=== PATIENT | male | born 1950 | race Caucasian/White ===

== ENCOUNTER 2017-05-29 09:39 | Emergency (ER) | payer MEDICARE, MEDICAID ==
[~2017-05-29] VITALS: Ht 172.7 cm; Wt 83.0 kg
[~2017-05-29 09:39] MED LIST: NKM
[2017-05-29] MEDS ORDERED: NKM (09:48)
[2017-05-29 09:51] VITALS: BP 156/88
[2017-05-29] MEDS ORDERED: Carbamide Peroxide 6.5% Ot Sol 15ML RIGHT EAR STA (09:56)
--- NOTE | 2017-05-29 10:01 | Emergency Room Report ---
History of Present Illness General Chief Complaint: Earache Source: Patient Present Illness HPI Patient presents with right ear pain. This began after he got shower water into his ear. There's been decreased hearing there also. Denies any fevers. Some tenderness when he moves his ear about a. Denies any sore throat. No other somatic complaints. Allergies: Coded Allergies: No Known Allergies (Unverified , 10/22/12) Patient History Limited by: language barrier Past Medical History: see triage record Social History: Denies: smoking, alcohol use, drug use Social History Narrative Reviewed Nursing Documentation: PMH: Agreed, PSxH: Agreed Nursing Documentation-PMH Past Medical History: No History, Except For Hx Hypertension: Yes Review of Systems Constitutional: Denies: fever Eye: Denies: eye pain ENT: Reports: see HPI Respiratory: Denies: shortness of breath Cardiovascular: Denies: chest pain Gastrointestinal: Denies: nausea Skin: Denies: rash Neurological: Denies: headache Physical Exam Vital Signs Date Time Temp Pulse Resp B/P (MAP) Pulse Ox O2 Delivery O2 Flow Rate FiO2 05/29/17 09:43 97.3 71 17 156/88 96 Room Air Sp02 EP Interpretation: reviewed, normal General Appearance: well appearing, no apparent distress Head: normocephalic, atraumatic Eyes: bilateral eye normal inspection, bilateral eye PERRL ENT: hearing grossly normal, normal voice, other - cerumen bilat. Polyp in canal. Erythema of canal. Neck: full range of motion, supple Respiratory: no respiratory distress, speaking full sentences Musculoskeletal: no calf tenderness Neurologic: alert, normal gait, grossly normal Psychiatric: mood/affect normal Skin: no rash Procedures Additional Procedure Procedure Narrative cerumen removal with plastic loop Medical Decision Making Diagnostic Impression: Primary Impression: Cerumen impaction Qualified Codes: H61.21 - Impacted cerumen, right ear Additional Impression: External otitis Qualified Codes: H60.501 - Unspecified acute noninfective otitis externa, right ear ER Course Patient with R ear pain after shower water entered. Cerumen present and polyp. Min canal erythema. Clinical diagnosis of cerumen impaction and possible OE. Needing removal of cerumen. Much removed with loop. Irrigated after Debrox X2. Still with cerumen but states hearing improved. Will rx debrox and cortisporin. Patient improved. Patient stable for outpatient observation and treatment. (Patient left d/c instructions and rx's at registration desk. Attempted to call , number not connected. Sent letter to package pick up instructions and Rxs.) Last Vital Signs Date Time Temp Pulse Resp B/P (MAP) Pulse Ox O2 Delivery O2 Flow Rate FiO2 05/29/17 11:48 97.3 17 156/88 96 Room Air 05/29/17 09:43 71 Status: improved Disposition: HOME, SELF-CARE Condition: Improved Scripts Acetaminophen (Tylenol) 325 Mg Tablet 650 MG ORAL Q6H Y for Prn Pain/Headache/Temp > 101, #20 TAB 0 Refills Prov: Jose Coombs M.D. 05/29/17 Neomycin/Polymyxin B Sulf/Hc* (CORTISPORIN EAR SOLUTION*) 10 Ml Solution 4 DROP RIGHT EAR QID, #10 ML 0 Refills Prov: Jose Coombs M.D. 05/29/17 Carbamide Peroxide (DEBROX) 15 Ml Drops 10 DROP RIGHT EAR TWICE A DAY for 4 Days, ML 0 Refills Prov: Jose Coombs M.D. 05/29/17 Jose Coombs M.D. May 29, 2017 10:01
[2017-05-29] MEDS ORDERED: TYLENOL325 MG ORAL (11:38)
[2017-05-29] MEDS ORDERED: CORTISPORIN EAR10 ML RIGHT EAR (11:38)
[2017-05-29] MEDS ORDERED: DEBROX15 M1 RIGHT EAR (11:38)
[2017-05-29] MEDS ORDERED: IBUPROFEN600 MG ORAL (20:22)
[2017-05-29] MEDS ORDERED: GENTAMICIN SUL3.5 GM OP (20:22)
== END 2017-05-29 11:45 | disposition home or self-care (01) ==
LOC: EMR 10:16 → MERGE 10:16 → EMR 11:45
DX: H61.23 Impacted cerumen, bilateral (principal); H60.91 Unspecified otitis externa, right ear
CPT/HCPCS: 99283

== ENCOUNTER 2017-05-29 19:43 | Emergency (ER) | payer MEDICAID, MEDICARE ==
[~2017-05-29] VITALS: Ht 180.3 cm; Wt 81.6 kg
[~2017-05-29 19:43] MED LIST changes: +CORTISPORIN EAR10 ML RIGHT EAR; +DEBROX15 M1 RIGHT EAR; +TYLENOL325 MG ORAL
[2017-05-29 20:05] VITALS: BP 130/82
[2017-05-29] MEDS ORDERED: Tetracaine 0.5% Opth 4ml Soln RIGHT EYE ONE (20:15)
[2017-05-29] MEDS ORDERED: Fluorescein Strips RIGHT EYE ONE (20:15)
[2017-05-29] MEDS ORDERED: IBUPROFEN600 MG ORAL (20:22)
[2017-05-29] MEDS ORDERED: GENTAMICIN SUL3.5 GM OP (20:22)
--- NOTE | 2017-05-29 21:40 | Emergency Room Report ---
History of Present Illness General Chief Complaint: Eye Problems Source: Patient, Medical Record Present Illness HPI Patient presents with complaints of right eye irritation and pain patient reports that he was here earlier this morning with ear discomfort However now feels discomfort to the eye Denies any obvious foreign body denies any trauma He reports of the pain came on fairly quickly at approximately 5:00 Denies any headache He feels that he is increasingly having tearing from that eye but denies any change in eye sight Allergies: Coded Allergies: No Known Allergies (Unverified , 10/22/12) Patient History Past Medical History: see triage record Past Surgical History: none Pertinent Family History: none Reviewed Nursing Documentation: PMH: Agreed, PSxH: Agreed Nursing Documentation-PMH Hx Hypertension: Yes Review of Systems All Other Systems: negative except mentioned in HPI Physical Exam Vital Signs Date Time Temp Pulse Resp B/P (MAP) Pulse Ox O2 Delivery O2 Flow Rate FiO2 05/29/17 19:57 98.2 32 16 130/82 98 Room Air Sp02 EP Interpretation: reviewed, normal General Appearance: well appearing, no apparent distress Head: normocephalic, atraumatic Eyes: right eye other - Scleral injection, fluorescein stain does not reveal any obvious abrasions or lacerations, no other injury uptake. Pressure of the eye was also normal , bilateral eye PERRL ENT: normal pharynx, no angioedema Neck: supple Musculoskeletal: normal inspection Neurologic: alert, oriented x3, responsive Skin: normal color, no rash Lymphatic: no adenopathy Medical Decision Making Diagnostic Impression: Primary Impression: conjunctivitis ER Course Patient's findings are in line with what appears to be conjunctivitis Consideration for glaucoma, iritis and other emergent pathology is also made Unfortunately we do not have any ophthalmology monorail helperbenefits specialist at this facility Patient has significantly better here at this time, I did discuss possibly sitting transfer to another facility with ophthalmology monorail helper specialty Patient's people however does react appropriately which decreases the likelihood of acute glaucoma However retinal detachment and iritis still considered Patient however also has appropriate vision And otherwise states that he has an velvet steamer that he will followup with tomorrow morning Last Vital Signs Date Time Temp Pulse Resp B/P (MAP) Pulse Ox O2 Delivery O2 Flow Rate FiO2 05/29/17 20:30 98.2 68 16 130/82 98 Room Air Status: improved Disposition: HOME, SELF-CARE Condition: Improved Scripts Gentamicin Sulfate* (GENTAMICIN SULFATE*) 3.5 Gm Oint...g. 3.5 GM OP BID for 5 Days, GM Prov: PABLO CARABALLO D.O. 05/29/17 Ibuprofen* (MOTRIN*) 600 Mg Tablet 600 MG ORAL Q8H Y for For Pain, #20 TAB 0 Refills Prov: PABLO CARABALLO D.O. 05/29/17 Referrals: NOT CHOSEN IPA/MD,REFERRING (PCP) Patient Instructions: Bacterial Conjunctivitis, [id number] Additional Instructions: followup with ophthalmology return with any changes PABLO CARABALLO D.O. May 29, 2017 21:40
== END 2017-05-29 20:30 | disposition home or self-care (01) ==
LOC: EMR 20:15 → MERGE 20:15 → EMR 20:30
DX: H10.9 Unspecified conjunctivitis (principal); I10 Essential (primary) hypertension
CPT/HCPCS: 99283